=== PATIENT | female | born 1980 | race Caucasian/White ===

== ENCOUNTER 2021-02-23 18:38 | Emergency (ER) | payer SELFPAY ==
[2021-02-23] MEDS ORDERED: Bupivacaine PF 0.5% 30 ML VIAL ONE (18:53)
== END 2021-02-23 19:13 | disposition home or self-care (01) ==
LOC: MADERS 18:38
DX: K04.7 Periapical abscess without sinus (principal); K02.9 Dental caries, unspecified; Z71.6 Tobacco abuse counseling; F17.210 Nicotine dependence, cigarettes, uncomplicated
CPT/HCPCS: 41800; 99406; S0020

== ENCOUNTER 2021-09-18 00:11 | Emergency (ER) | payer SELFPAY ==
[2021-09-18 00:51] LABS: Bilirubin Negative (Negative); Blood, Urine Trace (Negative); Clarity Slightly Cloudy (Clear); Glucose, Urine (Dipstick) Negative (Negative); Ketone, Urine Negative (Negative); Leukocyte Small (Negative); Nitrite Positive (Negative); Protein, Urine (Dipstick) Negative (Neg-Trace); Specific Gravity, Urine 1.025 (1.005-1.030); Urobilinogen 0.2 mg/dL (Less than 2)
[2021-09-18 00:58] LABS: RBC/HPF 0-3 HPF (0-3)
[2021-09-18 00:59] LABS: Bacteria/HPF 2+ HPF (None Seen)
[2021-09-18 01:10] LABS: Pregnancy Test - Urine (BHCG) Negative (Negative); Pregu Control Background? CLEAR/WHITE (CLR/WHITE); Pregu Control Bar Appear? YES (CONTROL BAR); Specific Gravity 1.027 (1.002-1.036)
[2021-09-23 21:53] LABS: Chlam.trachomatis by PCR,Urine Not Detected (NotDetected)
== END 2021-09-18 01:00 | disposition home or self-care (01) ==
LOC: MADERS 00:11
DX: N39.0 Urinary tract infection, site not specified (principal); Z20.2 Contact with and (suspected) exposure to infections with a predominantly sexual mode of transmission; J44.9 Chronic obstructive pulmonary disease, unspecified; F17.210 Nicotine dependence, cigarettes, uncomplicated
CPT/HCPCS: 81003; 81015; 81025; 87491; 87591; 99283

== ENCOUNTER 2022-10-19 07:49 | Emergency (ER) | payer SELFPAY ==
[2022-10-19] MEDS ORDERED: predniSONE 10 MG TAB ONE (08:49)
[2022-10-19] MEDS ORDERED: predniSONE 20 MG TAB ONE (08:49)
== END 2022-10-19 08:53 | disposition home or self-care (01) ==
LOC: MADERS 07:49
DX: S43.401A Unspecified sprain of right shoulder joint, initial encounter (principal); R21 Rash and other nonspecific skin eruption; F17.210 Nicotine dependence, cigarettes, uncomplicated; X50.1XXA Overexertion from prolonged static or awkward postures, initial encounter
CPT/HCPCS: J7512

== ENCOUNTER 2023-03-15 02:03 | Emergency (ER) | payer SELFPAY ==
[2023-03-15 02:25] LABS: Pregnancy Test - Urine (BHCG) Negative (Negative); Pregu Control Background? CLEAR/WHITE (CLR/WHITE); Pregu Control Bar Appear? YES (CONTROL BAR); Specific Gravity 1.025 (1.002-1.036)
[2023-03-15 02:26] LABS: Bacteria/HPF 4+ HPF (None Seen); Bilirubin Negative (Negative); Blood, Urine Trace (Negative); Calcium Oxalate Crystals 1+ HPF (None Seen); Clarity Turbid (Clear); Glucose, Urine (Dipstick) Negative (Negative); Ketone, Urine Negative (Negative); Leukocyte Small (Negative); Nitrite Positive (Negative); Protein, Urine (Dipstick) 30 mg/dL (Neg-Trace); RBC/HPF 0-3 HPF (0-3); Specific Gravity, Urine 1.025 (1.005-1.030); Urobilinogen 0.2 mg/dL (Less than 2)
[2023-03-15] MEDS ORDERED: Phenazopyridine HCl 95 MG TAB ONE (02:37)
[2023-03-15] MEDS ORDERED: Cephalexin 500 MG CAP ONE ×2 (02:41→02:43)
== END 2023-03-15 02:46 | disposition home or self-care (01) ==
LOC: MADERS 02:03
DX: N39.0 Urinary tract infection, site not specified (principal); J44.9 Chronic obstructive pulmonary disease, unspecified; F17.210 Nicotine dependence, cigarettes, uncomplicated
CPT/HCPCS: 81003; 81015; 81025; 87077; 87086; 87186; 99283